=== PATIENT | female | born 1990 | race Caucasian/White ===

== ENCOUNTER 2016-03-25 20:26 | Emergency (ER) | payer MEDICAID ==
[2016-03-25] MEDS ORDERED: SODIUM CHLORIDE 0.9% 1,000 ML ONE (23:07)
[2016-03-25] MEDS ORDERED: ONDANSETRON 4 MG VIAL ONE (23:07)
[2016-03-25] MEDS ORDERED: SODIUM CHLORIDE 0.9% 250 ML IV ONE (23:59)
[2016-03-25] MEDS ORDERED: PROMETHAZINE 25 MG/ML VIAL ONE (23:59)
== END 2016-03-26 00:31 | disposition home or self-care (01) ==
LOC: ER 20:26
DX: B34.9 Viral infection, unspecified (principal); Z79.899 Other long term (current) drug therapy
CPT/HCPCS: 81003; 87804; 96361; 96365; 96375

== ENCOUNTER 2016-04-03 21:38 | Emergency (ER) | payer MEDICAID | END 2016-04-03 23:20 | disposition home or self-care (01) | LOC: FASTR 21:38 | DX: H60.8X1 Other otitis externa, right ear (principal); Z79.899 Other long term (current) drug therapy ==